=== PATIENT | male | born 1950 | race Caucasian/White ===

== ENCOUNTER → 2019-01-03 | Outpatient (CLI) | payer OTHER, MEDICARE | LOC: FIMAGING 07:23 | PROVIDERS: ATTEND Orthopaedic Surgery | DX: M17.11 Unilateral primary osteoarthritis, right knee (principal) ==

== ENCOUNTER → 2019-01-04 | Outpatient (CLI) | payer OTHER, MEDICARE | LOC: BHERIE 14:45 | PROVIDERS: ATTEND Internal Medicine Cardiovascular Disease | DX: R01.1 Cardiac murmur, unspecified (principal) | CPT/HCPCS: 93306-PO ==

== ENCOUNTER 2019-01-22 08:49 | Inpatient (IN) | payer OTHER, MEDICARE | END 2019-01-23 11:52 | disposition home health service (06) | LOC: F3N 08:49 ==

== ENCOUNTER 2019-01-25 16:32 | Inpatient (IN) | payer OTHER, MEDICARE | END 2019-01-29 15:54 | LOC: F2W 19:06 ==